=== PATIENT | female | born 1950 | race Caucasian/White ===

== ENCOUNTER → 2017-09-14 | Outpatient (CLI) | payer OTHER ==
[~2017-09-14] MED LIST: ACETAMINOPHEN650 M5 PO; ALBUTEROL2.5 MG/0.5 INH; ALPRAZOLAM 0.0.25 M1 PO; ALPRAZOLAM 0.50.5 M1 PO; AMBIEN 5 MG TABL5 M1 PO; APAP500 PO; ASPIRIN325 PO; ASPIRIN81 M2 PO; B12INJ PO; CALCIUM 600 +1 EAC1 PO; CALTRATE-600 W1 EACH PO; CARDIZEM SR 60M60 MG PO; CELEBREX 200 M200 M1 PO; CENTRUM TABLET1 TAB PO; DILTIAZEM ER120 M1 PO; FISH OIL 1,0001 EAC5 PO; FISH OIL SOFTG1 EACH PO; FLEXERIL PO; FLONASE 0.05%50 MCG SPRAY; FUROSEMIDE 40 M40 M1 PO; HYDROCODONE-APA1 TA1 PO; IRON325 PO; K-DUR 20 MEQ T20 MEQ PO; KCLP 20 MEQ2 MEQ/ML PO; LASIX 40 MG TAB40 MG PO; LEVAQUIN 500 M500 M2 PO; MULTI-VITAMIN1 EAC5 PO; MULTIVITAMINS PO; NORCO 5-325 TA1 EACH PO; OMEGA-31000 M1 PO; OMEPRAZOLE40 MG PO; OXYCODONE-ACET1 EACH PO; PACERONE 200 M200 M1 PO; PHENERGAN 25 MG25 M1 PO; POTASSIUM20 PO; PRADAXA75 MG PO; PROTONIX40 M2 PO; REQUIP 0.25 M0.25 M1 PO; REQUIP 0.25 M0.25 MG PO; SORINE 80 MG TA80 M1 PO; SORINE 80 MG TA80 MG PO; UNICOMPLEX M TA1 TA1 PO; VALIUM2 MG PO
--- NOTE | ~2017-09-14 | P ---
[facility] [place] [address] PROCEDURE REPORT Name: BOOGIE FIELDS Room #: REG [facility]#: [id number] Admission: 09/14/17 Attend Phys: Torres Parsons MD Discharge: Date of : 48 Report #: [id number] THIS REPORT FOR: //name// CC: FAM physician/PCP Jeison Parsons PRIMARY PHYSICIAN: Dr. Fran Benitez. CLINICAL HISTORY: A 67-year-old white female with infiltrates. Diagnostic bronchoscopy was performed. POSTOPERATIVE DIAGNOSES: Normal airways. DESCRIPTION OF PROCEDURE: Following obtained consent and risks and benefits being explained to the patient, which include infection, bleeding, pneumothorax, procedure performed in the endoscopy suite. The patient received 4% aerosolized lidocaine along with 1% lidocaine to the upper airways. She also received 2 mg of Versed and 100 mcg of fentanyl IV push. The left nostril was then locally anesthetized with 1% lidocaine jelly along with Q-tips. Three Q-tips were utilized to enlarge the nasal passage. Following this, a flexible fiberoptic bronchoscope was then introduced without difficulty. The epiglottis was normal. Vocal cords were normal. The trachea was normal, david was normal. Left mainstem bronchus, left upper lobe and left lower lobe were normal. Right mainstem bronchus, right upper lobe, right middle lobe and right lower lobe were also normal. Bronchoalveolar lavage was performed in the proximal anterior basal segment of the right lower lobe. Two aliquots of 20 mL normal saline were utilized. We had adequate return in the specimen cup. The patient otherwise tolerated the procedure well. No complications noted. Vital signs and saturation throughout the study were within normal range. The bronchial lavage will be sent for microbiologic studies including cytology, cell count with differential. <ELECTRONICALLY SIGNED> By: Torres Parsons MD 09/16/17 1730 1235 1918 Torres Parsons MD /nt
--- NOTE | ~2017-09-14 | CNG ---
[facility] [place] [address] CYTO-NONGYN REPORT PROCEDURE Name: BOOGIE FIELDS Room #: REG [facility]#: [id number] Admission: 09/14/17 Date of : 48 Discharge: Report #: [id number] Path Case #: [id number] CYTOPATHOLOGY REPORT COLLECTION DATE: 09/14/2017 RECEIVED DATE: 09/14/2017 SUBMITTING PHYS: Dr. Torres Parsons OTHER PHYS: CLINICAL HISTORY: Bronchiectasis w/o complication SPECIMEN(S) RECEIVED: A.Bronchoalveolar lavage, RLL * * * * * * * * * * * * FINAL DIAGNOSIS: A. Bronchoalveolar lavage, RLL: - No malignant epithelial cells identified. - Bronchial epithelial cells, alveolar macrophages, and squamous cells present (see comment). COMMENT: Due to the patient's history, a properly controlled acid-fast stain is performed on a ThinPrep slide. Acid-fast (ThinPrep specimen A) - Nonspecific staining present; no convincing faviola shaped organisms identified. Of note, the sensitivity of acid-fast staining on a ThinPrep slide is low. Correlation with clinical history, radiographic findings and microbiology specimens is required. (CLW:yamil; 09/16/2017) PATHOLOGIST: Daina Sánchez M.D. REPORT ELECTRONICALLY SIGNED BY: Daina Sánchez M.D. DATE/TIME: 09/16/2017 15:17 * * * * * * * * * * * * GROSS PATHOLOGY: A. Bronchoalveolar lavage, RLL: The specimen is submitted unfixed, labeled "Boogie iFelds". Received by the Cytology Department is seven mL of cloudy colorless fluid. One ThinPrep slide was prepared for pap stain and one ThinPrep slide prepared for acid fast stain. (09.14.2017) DERMATOLOGIST(S): KEENAN Tinajero(ASCP) INITIAL CPT CODE(S): A; 09898, 07750 Professional [facility] [address] [place] [address] CYTO-NONGYN REPORT PROCEDURE Name: BOOGIE FIELDS Room #: REG OSIRIS [facility]#: [id number] Admission: 09/14/17 Date of : 48 Discharge: Report #: [id number] Path Case #: [id number] , [place] [address] Technical services performed by [facility] at [address] [place] [address], [address], [place] [address]. [address], [facility] [address] [place] [address] PHONE: [phone] DIRECTOR: Danny Resendiz M.D. * * * END OF REPORT * * *
[2017-09-14 11:29] LABS: CLARITY CLOUDY; COLOR TAN; SOURCE RLL BAL; TOTAL VOLUME 10 mL
[2017-09-14 12:18] LABS: BF NUCLEATED CELLS 549; BF RBC 458 /uL
[2017-09-14 12:41] LABS: BF MACROPHAGE 3; BF NEUTROPHILS 82
== END | disposition home or self-care (01) ==
LOC: CATH 08-31 11:01
PROVIDERS: Internal Medicine Pulmonary Disease
DX: R91.8 Other nonspecific abnormal finding of lung field (principal); Z79.899 Other long term (current) drug therapy

== ENCOUNTER → 2017-10-14 | Outpatient (CLI) | payer OTHER ==
[~2017-10-14] VITALS: Ht 149.9 cm; Wt 79.4 kg
--- NOTE | ~2017-10-14 | HC ---
[facility] [place] [address] CONSULTATION Name: BOOGIE FIELDS Room #: REG [facility]#: [id number] Admission: 10/14/17 Attend Phys: Elton Warren Discharge: Date of : 48 Report #: [id number] THIS REPORT FOR: //name// CC: BONNY physician/PCP Elton Benitez MD DATE OF SERVICE: 10/14/2017 REASON FOR CONSULTATION: Mycobacterium avium lung infection. HISTORY OF PRESENT ILLNESS: The patient is a 67-year-old white woman who undergoes repeat bronchoscopy on 09/14/[address] Torres Parsons. The sputum culture grew Mycobacterium avium again and ID opinion is requested. This patient was previously seen by Dr. Roland Snell, who recommended treatment of Mycobacterium avium lung infection with a combination of rifampin, Biaxin and ethambutol to be taken 3 times weekly for 18 months. The patient completed 1- to 1-1/2 months of treatment and this was suspended because according to the patient and daughter, there was an interaction of antimycobacterial drugs with her cardiac medication -- amiodarone. The patient did suffer a TIA. The patient apparently did experience side effects from her medications consists of fatigue and some nausea. Currently, the patient's lung symptomatology consists mainly of some dyspnea with exertion. She uses supplemental oxygen at night time and CPAP at night time. She occasionally have some cough and sputum production, but not as of lately. DRUG ALLERGIES: None listed. MEDICATIONS: Currently, the patient is on treatment with albuterol inhalation treatments, Celecoxib 200 mg daily, Pradaxa 150 mg daily, Remeron 15 mg daily, pantoprazole 2 tablets daily, sotalol 80 mg daily, umeclidinium/vilanterol inhalation treatments. The patient was previously treated with rifampin 600 mg p.o. TIW, ethambutol 1600 mg p.o. TIW, Biaxin 1000 mg p.o. TIW. SOCIAL HISTORY: . One daughter. Retired. REVIEW OF SYSTEMS: Some shortness of breath, occasional sputum production, uses oxygen 2 liters per minute and CPAP at night time. PAST MEDICAL HISTORY: Atrial fibrillation. Bronchiectasis with Mycobacterium avium lung infection. Obstructive sleep apnea. Right bundle branch block. Gastroesophageal reflux. PHYSICAL EXAMINATION: GENERAL: This is a well-developed, not toxic looking woman. [address] [address] CONSULTATION Name: BOOGIE FIELDS Room #: REG [facility]#: [id number] Admission: 10/14/17 Attend Phys: Elton Warren Discharge: Date of : 48 Report #: [id number] VITAL SIGNS: Temperature 97.4, pulse 104, respirations 12, BP 118/68, height 4 feet 11 inches, weight 175 pounds. HEENMT: Head: Normocephalic, atraumatic. Pupils reactive. Mouth: No thrush. NECK: Supple, no thyromegaly. LUNGS: Decreased breath sounds. Moves very little air with some rhonchi and crackles on both lung matthews. HEART: S1, S2. No gallop or murmur. ABDOMEN: Surgical scars, soft. No masses or megaly. EXTREMITIES: No edema. PELVIC AND RECTAL: Deferred. LABORATORY DATA: The sputum culture obtained during bronchoscopy on 09/14/2017 revealed Mycobacterium avium complex, sensitivity pending and I put a requisition for sensitivity and I discussed with Microbiology at [facility] about sending sample for testing. The CT scan of the chest dated 07/26/2017 is reviewed and the patient is found to have nodular infiltrates both lungs, some cavitary lesion left lung, and evidence of bronchiectasis. ASSESSMENT: 1. Minimal cavitary and nodular Mycobacterium avium lung infection. 2. Chronic obstructive pulmonary disease, emphysema. 3. Atrial fibrillation. 4. Transient ischemic attack. SUGGESTIONS: Lengthy discussion with patient and her daughter about treatment of Mycobacterium avium lung infection. The treatment will consist of combination of 3 drugs at least. The main state of the regimen will be Biaxin or azithromycin in combination with ethambutol and rifampin. We will make decision once sensitivity available. Discussed side effects of combination antibiotics. The patient will knowingly embarking to treatment once sensitivity available. Requested that she sees me again in about [address] Fran Benitez, thank you for requesting my suggestions in the care of your patient. <ELECTRONICALLY SIGNED> By: Elton Gee MD 10/15/17 0952 1402 0039 Elton Gee MD /nt
[2017-10-14 11:06] VITALS: BP 118/68
== END ==
LOC: SEN 08:26
DX: A31.0 Pulmonary mycobacterial infection (principal); J44.9 Chronic obstructive pulmonary disease, unspecified; I48.91 Unspecified atrial fibrillation; G45.9 Transient cerebral ischemic attack, unspecified

== ENCOUNTER → 2017-12-16 | Outpatient (CLI) | payer OTHER ==
[2017-12-16 10:53] VITALS: BP 142/82
== END ==
LOC: RAD 10:29 → SEN 10:29
DX: I50.9 Heart failure, unspecified (principal)

== ENCOUNTER → 2018-01-05 | Outpatient (CLI) | payer OTHER | LOC: RAD 12:31 | DX: I51.7 Cardiomegaly (principal); J47.9 Bronchiectasis, uncomplicated; J18.9 Pneumonia, unspecified organism; A31.0 Pulmonary mycobacterial infection; M25.78 Osteophyte, vertebrae ==

== ENCOUNTER → 2018-06-03 | Outpatient (CLI) | payer OTHER | LOC: CAT 10:47 | DX: J47.9 Bronchiectasis, uncomplicated (principal); J98.4 Other disorders of lung; R91.8 Other nonspecific abnormal finding of lung field; M47.814 Spondylosis without myelopathy or radiculopathy, thoracic region; Z87.09 Personal history of other diseases of the respiratory system ==

== ENCOUNTER → 2018-08-25 | Outpatient (CLI) | payer OTHER | LOC: RAD 12:09 | DX: J47.9 Bronchiectasis, uncomplicated (principal); J98.4 Other disorders of lung; R91.8 Other nonspecific abnormal finding of lung field; M47.814 Spondylosis without myelopathy or radiculopathy, thoracic region ==

== ENCOUNTER → 2019-03-06 | Outpatient (CLI) | payer OTHER | LOC: RAD 12:48 | DX: R06.00 Dyspnea, unspecified (principal) ==

== ENCOUNTER → 2019-08-11 | Outpatient (CLI) | payer OTHER | LOC: CAT 15:28 | DX: R91.8 Other nonspecific abnormal finding of lung field (principal); J47.9 Bronchiectasis, uncomplicated; A31.0 Pulmonary mycobacterial infection; I70.0 Atherosclerosis of aorta; J84.10 Pulmonary fibrosis, unspecified ==

== ENCOUNTER → 2019-09-19 | Outpatient (CLI) | payer OTHER ==
[~2019-09-19] VITALS: Ht 149.9 cm; Wt 87.1 kg
[~2019-09-19] MED LIST changes: +ANORO ELLIPTA1 EACH INH; +CALCIUM 500 +1 EAC1 PO; +CARTIA XT180 M1 PO; +FUROSEMIDE 20 M20 MG PO; +LEXAPRO 10 MG T10 M1 PO; +PROAIR HFA8.5 GM INH; +PROTONIX40 M1 PO; +TOPROL XL25 MG PO; +[UNRECOGNIZED DRUG - OTHER] PO
[2019-09-19 07:57] VITALS: BP 116/52
--- NOTE | 2019-09-25 13:07 | PATH ---
[facility] [address] [place] [address] PATHOLOGY RPT PROCEDURE Name: BOOGIE FIELDS Room #: REG OSIRIS [facility].#: [id number] Admission: 09/19/19 Date of : 48 Discharge: Report #: [id number] Path Case #: [id number] Note [facility] Accession Number: [id number] TESTS RESULT FLAG UNITS REF RANGE LAB Clinician Provided Cytology Information No. of containers..01 Other (Miscellaneous) Source: 01 RUL BAL DIAGNOSIS: 02 RUL BAL NEGATIVE FOR MALIGNANT CELLS. REACTIVE BRONCHIAL CELLS ARE PRESENT. PULMONARY MACROPHAGES (DUST CELLS) ARE PRESENT. CELLULAR DEGENERATION IS PRESENT. Signed out by: 02 Negro Monteiro MD, Pathologist NPI- [id number] Performed by: Carol Coleman, Speaker Mounter ([facility]) Gross description: 01 25 ML, COLORLESS, CLOUDY /LCS 09/19/2019 1706 Local FLAG LEGEND: L-Low Normal,H-High Normal,LL-Alert Low,HH-Alert High <-Panic Low,>-Panic High,A-Abnormal,AA-Critical Abnormal Performed at: [address] [place] [address] Joel James MD, [address] [address] Inez Garber MD, Specimen Comment: A courtesy copy of this report has been sent to [phone], [phone] Specimen Comment: [id number] Specimen Comment: Report sent to DR WHITESIDE / DR CIFUENTES Specimen Comment: A duplicate report has been generated due to demographic updates. Performed at: [address], [place], [place] [id number] MD Joel James MD Phone: [phone]
== END | disposition home or self-care (01) ==
LOC: PUL 06:17
DX: R06.00 Dyspnea, unspecified (principal); J98.09 Other diseases of bronchus, not elsewhere classified; I48.91 Unspecified atrial fibrillation; G47.33 Obstructive sleep apnea (adult) (pediatric); G89.29 Other chronic pain; K21.9 Gastro-esophageal reflux disease without esophagitis; Z96.653 Presence of artificial knee joint, bilateral; Z98.890 Other specified postprocedural states; Z96.643 Presence of artificial hip joint, bilateral; Z86.73 Personal history of transient ischemic attack (TIA), and cerebral infarction without residual deficits; Z98.41 Cataract extraction status, right eye; Z98.42 Cataract extraction status, left eye; Z90.711 Acquired absence of uterus with remaining cervical stump; Z79.899 Other long term (current) drug therapy; Z79.01 Long term (current) use of anticoagulants
CPT/HCPCS: 62110; 62900; 70005

== ENCOUNTER → 2019-12-07 | Outpatient (CLI) | payer OTHER | LOC: CAT 10:23 | DX: R91.8 Other nonspecific abnormal finding of lung field (principal); J84.9 Interstitial pulmonary disease, unspecified ==

== ENCOUNTER → 2020-06-04 | Outpatient (CLI) | payer OTHER | LOC: CAT 08:36 | PROVIDERS: ATTEND Internal Medicine | DX: J43.9 Emphysema, unspecified (principal); R91.8 Other nonspecific abnormal finding of lung field; M25.78 Osteophyte, vertebrae; M47.814 Spondylosis without myelopathy or radiculopathy, thoracic region ==

== ENCOUNTER → 2020-11-13 | Outpatient (CLI) | payer OTHER ==
[~2020-11-13] MED LIST changes: +PROTONIX40 M4 PO
== END ==
LOC: LAB 09:00
PROVIDERS: ATTEND Internal Medicine Gastroenterology
DX: Z01.812 Encounter for preprocedural laboratory examination (principal); Z20.822 Contact with and (suspected) exposure to COVID-19

== ENCOUNTER → 2020-11-18 | Outpatient (CLI) | payer OTHER ==
[~2020-11-18] VITALS: Ht 149.9 cm; Wt 86.2 kg
--- NOTE | 2020-11-20 15:07 | PATH ---
[facility] [address] [place] [address] PATHOLOGY RPT PROCEDURE Name: BOOGIE TOLEDO Room #: REG [facility]#: [id number] Admission: 11/18/20 Date of : 48 Discharge: Report #: [id number] Path Case #: [id number] [facility] Accession Number: [id number] . 01 Material submitted: . esophagus - BIOPSY RANDOM ESOPHAGEAL RULE OUT EOSINOPHILIC ESOPHAGITIS . 01 Clinical history: . PRE-OP GERD EGD POST-OP DIAGNOSIS: NORMAL . 02 Diagnosis: Squamous mucosa, random esophageal, rule out eosinophilic esophagitis, endoscopic biopsy: - Mild active esophagitis. - No increase in intraepithelial eosinophils. - Negative for intestinal metaplasia or dysplasia. (IUV:pit 11/20/2020) QTP 11/20/2020 1253 Local . 02 Electronically signed: . Inez Garebr MD, Pathologist NPI- [id number] . 01 Gross description: . The specimen is received in formalin, labeled "Boogie Toledo", "biopsy random esophageal r/o eosinophilic esophagitis". Received are multiple segments of pale white soft tissue ranging in size from 0.2 cm to 0.3 cm. The specimen is entirely submitted in cassette A1.(SNA; 11/19/2020) PIPE/KAROLINA 11/19/2020 0911 Local . 02 Pathologist provided ICD-10: K20.90 . 02 CPT . 853561 Specimen Comment: A courtesy copy of this report has been sent to [phone] Specimen Comment: Report sent to Performed at: [address], [place] [id number] MD Dario Parker MD Phone: [phone] Performed at: [address] [id number] MD Inez Garber MD Phone: [phone]
== END | disposition home or self-care (01) ==
LOC: GI 09:57
PROVIDERS: ATTEND Internal Medicine Gastroenterology
DX: R13.10 Dysphagia, unspecified (principal); K20.90 Esophagitis, unspecified without bleeding; R12 Heartburn; K21.9 Gastro-esophageal reflux disease without esophagitis; I48.91 Unspecified atrial fibrillation; J44.9 Chronic obstructive pulmonary disease, unspecified; F32.9 Major depressive disorder, single episode, unspecified; F41.9 Anxiety disorder, unspecified; Z98.890 Other specified postprocedural states; Z79.899 Other long term (current) drug therapy; Z86.73 Personal history of transient ischemic attack (TIA), and cerebral infarction without residual deficits; Z96.653 Presence of artificial knee joint, bilateral; Z96.643 Presence of artificial hip joint, bilateral; Z90.711 Acquired absence of uterus with remaining cervical stump; Z98.41 Cataract extraction status, right eye; Z98.42 Cataract extraction status, left eye; Z90.49 Acquired absence of other specified parts of digestive tract
CPT/HCPCS: 62110; 62900

== ENCOUNTER → 2020-11-29 | Outpatient (CLI) | payer OTHER | LOC: CAT 12:47 | PROVIDERS: ATTEND Internal Medicine | DX: J84.9 Interstitial pulmonary disease, unspecified (principal); R91.8 Other nonspecific abnormal finding of lung field ==

== ENCOUNTER → 2020-12-02 | Outpatient (CLI) | payer OTHER | LOC: LAB 11:10 | PROVIDERS: ATTEND Internal Medicine | DX: Z01.812 Encounter for preprocedural laboratory examination (principal); Z20.822 Contact with and (suspected) exposure to COVID-19 ==

== ENCOUNTER → 2021-01-04 | Outpatient (CLI) | payer OTHER ==
--- NOTE | 2021-01-06 14:30 | SLE ---
[facility] [place] [place] [address] POLYSOMNOGRAPHY STUDY Name: BOOGIE FIELDS Room #: REG [facility]#: [id number] Admission: 01/04/21 Attend Phys: Last Miner MD Discharge: Date of : 48 Report #: [id number] THIS REPORT FOR: cc: ANISHA CIFUENTES Physician not on staff Last Miner MD ~ DATE OF SERVICE: 01/05/2021 SLEEP STUDY ATTENDING PHYSICIAN: Dr. Fran Benitez. The patient is a 70-year-old who weighs 190 pounds with a BMI of 37.1. The patient's Brooklet score was 4. The patient has history of interstitial lung disease and pulmonary arterial hypertension. The patient uses oxygen at home for the lung condition. The patient has history of sleep apnea, but does not use CPAP. A split night study was performed at [facility]. During the night of the study, the patient spent 490 minutes in bed and slept for 385 minutes with a sleep efficiency of 78%. Sleep latency was 46 minutes with a REM latency of 394 minutes. Sleep architecture showed normal stage 1 sleep, increased stage 2 sleep, increased slow wave and reduced REM sleep, which was 11% of total sleep time. During the initial diagnostic portion of the study, the patient slept for 156 minutes. During that time, the patient has no obstructive mixed or central apneas. The patient had 27 hypopneas. The patient's AHI was 10.4 per hour. REM sleep was not observed. Supine AHI was 15.5 per hour. Nocturnal oximetry study revealed an average oxygen saturation of 85% with the lowest of 79%. 154 minutes were spent with oxygen saturation of less than 89%. EKG monitoring revealed evidence of atrial fibrillation. Average heart rate was 82 beats per minute. No sustained arrhythmias observed. PLMS were seen at an index of 145 per hour and 13 per hour caused EEG arousals. The patient met the criteria for CPAP initiation. It was started at 8 cm water and titrated up to 15 cm water. A 1.5 liters of oxygen was also added due to hypoxia. At the final pressure of 15 cm water, the patient slept for 22 minutes. The patient had 12.5 minutes of supine REM sleep. The patient's AHI was reduced to 0 per hour and oxygen saturation remained above 90%. The patient's PLM index also improved significantly to 12.8 per hour from previous of 145 per hour and arousal index reduced to 5 per hour. [facility] [address] [place] [address] POLYSOMNOGRAPHY STUDY Name: BOOGIE FIELDS [facility] [id number] Admission: 01/04/21 Attend Phys: Last Miner MD Discharge: Date of : 48 Report #: [id number] IMPRESSION: 1. Mild obstructive sleep apnea with moderate increase during supine sleep. Absence of REM sleep during the diagnostic portion can underestimate the severity of sleep apnea. 2. Nocturnal hypoxia secondary to underlying interstitial lung disease and pulmonary arterial hypertension ( per history) and IZABEL. 3. Severe PLMS, which significantly improved while the patient slept on CPAP. The patient's PLM index during the diagnostic portion was 145 per hour, but reduced to only 12.8 per hour while the patient slept on CPAP. 4. Abnormal EKG with atrial fibrillation. RECOMMENDATIONS: 1. CPAP at 15 cm water along with 1.5 liters of supplemental oxygen should be used on a nightly basis. 2. Follow up in 4-6 weeks to assess compliance with CPAP and to document clinical improvement. 3. Weight loss is advised. 4. Avoid PLATE KEEPER depressants. 5. Cautioned regarding driving until symptoms of sleep apnea resolve with the use of CPAP. <ELECTRONICALLY SIGNED> By: Last Miner MD 01/06/21 1430 02 4638 Last Miner MD /nt
== END ==
LOC: SLEEPLAB 12:55
PROVIDERS: ATTEND Internal Medicine Critical Care Medicine
DX: G47.33 Obstructive sleep apnea (adult) (pediatric) (principal); R09.02 Hypoxemia; R94.31 Abnormal electrocardiogram [ECG] [EKG]; I48.91 Unspecified atrial fibrillation

== ENCOUNTER → 2021-02-25 | Outpatient (CLI) | payer OTHER | LOC: CAT 12:06 | PROVIDERS: ATTEND Internal Medicine | DX: R91.8 Other nonspecific abnormal finding of lung field (principal); J84.9 Interstitial pulmonary disease, unspecified; G47.33 Obstructive sleep apnea (adult) (pediatric); M25.78 Osteophyte, vertebrae; M19.019 Primary osteoarthritis, unspecified shoulder; M48.04 Spinal stenosis, thoracic region; M46.02 Spinal enthesopathy, cervical region; Z90.49 Acquired absence of other specified parts of digestive tract ==